=== PATIENT | male | born 1980 | race Asian ===

== ENCOUNTER 2016-06-14 12:00 | Outpatient (RCR) | payer OTHER ==
--- OUTSIDE RECORDS SUMMARY | 2016-06-12 16:46 | XMS REPORT | Continuity of Care Document ---
Author Author [facility] Organization [facility] Address Unknown Phone Unavailable Care Team Providers Care Base Wad Operator Adjuster Name Role Phone NO, LOCAL PHYSICIAN PCP Unavailable Insurance Providers Payer Name Policy Number Subscriber Name Relationship Student Resources [id number] Lay Thayer Y 16 Self / Same As Patient Advance Directives Directive Response Recorded Date/Time Advance Directives No 05/14/16 9:05am Organ Donor Yes 05/14/16 9:05am Resuscitation Status Full Code 05/14/16 9:05am Chief Complaint and Reason for Visit Chief Complaint Back Problems Reason for Visit [id number] Problems Active Problems Medical Problem Onset Date Status Hydronephrosis Unknown Acute Right distal ureteral calculus Unknown Acute Right sided abdominal pain Unknown Acute Ureteral stone Unknown Acute Medications Current Home Medications Medication Dose Units Route Directions Days/Qty Instructions Start Date Oxycodone Hcl/Acetaminophen 1 Each 1 Each Oral Every 4HRS as needed for Pain 05/13/16 Ciprofloxacin Hcl 500 Mg 500 Mg Oral Twice A Day 05/13/16 Ondansetron 4 Mg 4 Mg Sublingual Every 4HRS as needed for Nausea/Vomiting 05/13/16 Tamsulosin Hcl 0.4 Mg 0.4 Mg Oral Daily 05/14/16 Social History Social History Problem Response Recorded Date/Time Alcohol Use Denies Use 05/14/2016 9:05am Recreational Drug Use No 05/14/2016 9:05am Recent Foreign Travel No 05/14/2016 9:05am Recent Infectious Disease Exposure No 05/14/2016 9:05am Hospitalization with Isolation Denies 05/14/2016 9:05am Smoking Status Never a Smoker 05/14/2016 9:05am Recent Hopitalizations No 05/14/2016 9:05am Hospitalization with Isolation Denies 05/14/2016 9:05am Query Response Start Date Stop Date Smoking Status Never a Smoker Hospital Discharge Instructions No hospital discharge instructions. Plan of Care Discharge Date 05/14/16 10:19am Disposition 01 HOME, SELF-CARE Condition at Discharge Improved Instructions/Education Provided Nephrolithiasis (ED) How to Strain Your Urine (ED) Forms Provided School/Childcare Release Prescriptions See Medication Section Referrals NO,LOCAL PHYSICIAN - Primary Care Physician DANIEL PIRES MD - Additional Instructions/Education STRAIN ALL URINE--RETURN ANY STONES TO YOUR DR'S OFFICE FOLLOW UP WITH DR. PIRES SCHEDULED, OR SOONER IF WORSE CONTINUE YOUR MEDICATIONS PRESCRIBED All discharge instructions reviewed with patient and/or family. Voiced understanding. Functional Status No functional status results. Allergies, Adverse Reactions, Alerts No known allergies. Immunizations No immunization records. Vital Signs Acute Vital Signs Vital Response Date/Time Temperature (Fahrenheit) 98.4 degrees F (97.6 - 99.5) 05/14/2016 9:05am Temperature (Calculated Celsius) 36.38688 degrees C (36.4 - 37.5) 05/14/2016 9:05am Temperature Source Temporal 05/14/2016 9:05am Pulse Rate (adult) 70 bpm (60 - 90) 05/14/2016 9:05am Respiratory Rate 16 bpm (12 - 24) 05/14/2016 9:05am O2 Sat by Pulse Oximetry 99 % (88 - 100) 05/14/2016 9:05am Blood Pressure 130/82 mm Hg 05/14/2016 9:05am Blood Pressure Mean 98 mm Hg 05/14/2016 9:05am Pain Numeric Pain Scale 7 05/14/2016 9:40am Height (Feet) 5 feet 05/14/2016 9:05am Height (Inches) 8 inches 05/14/2016 9:05am Height (Calculated Centimeters) 172.612801 cm 05/14/2016 9:05am Weight (Pounds) 155 pounds 05/14/2016 9:05am Weight (Calculated Grams) 46017.704 gm 05/14/2016 9:05am Weight (Calculated Kilograms) 70.109763 kilograms 05/14/2016 9:05am Capillary Refill Capillary Refill Less Than 3 Seconds 05/14/2016 9:05am Height 5 ft 8 in Weight 155 lb Body Mass Index 23.6 kg/m^2 Results Laboratory Results Test Name Result Units Flags Reference Collection Date/Time Result Date/ Time Comments White Blood Count 11.1 10^3/uL H 4.3-11.0 05/13/2016 7:40am 05/13/2016 8: 10am Red Blood Count 5.11 10^6/uL 4.35-5.85 05/13/2016 7:40am 05/13/2016 8: 10am Hemoglobin 15.6 G/DL 13.3-17.7 05/13/2016 7:40am 05/13/2016 8:10am Hematocrit 46 % 40-54 05/13/2016 7:40am 05/13/2016 8:10am Mean Corpuscular Volume 89 FL 80-99 05/13/2016 7:40am 05/13/2016 8: 10am Mean Corpuscular Hemoglobin 31 PG 25-34 05/13/2016 7:40am 05/13/2016 8: 10am Mean Corpuscular Hemoglobin Concent 34 G/DL 32-36 05/13/2016 7:40am 01/2016 8:10am Red Cell Distribution Width 11.8 % 10.0-14.5 05/13/2016 7:40am 2015 8:10am Platelet Count 265 10^3/uL 130-400 05/13/2016 7:40am 05/13/2016 8:10am Mean Platelet Volume 11.1 FL H 7.4-10.4 05/13/2016 7:40am 05/13/2016 8: 10am Neutrophils (%) (Auto) 69 % 42-75 05/13/2016 7:40am 05/13/2016 8:10am Lymphocytes (%) (Auto) 23 % 12-44 05/13/2016 7:40am 05/13/2016 8:10am Monocytes (%) (Auto) 8 % 0-12 05/13/2016 7:40am 05/13/2016 8:10am Eosinophils (%) (Auto) 0 % 0-10 05/13/2016 7:40am 05/13/2016 8:10am Basophils (%) (Auto) 0 % 0-10 05/13/2016 7:40am 05/13/2016 8:10am Neutrophils # (Auto) 7.6 X 10^3 1.8-7.8 05/13/2016 7:40am 05/13/2016 8: 10am Lymphocytes # (Auto) 2.5 X 10^3 1.0-4.0 05/13/2016 7:40am 05/13/2016 8: 10am Monocytes # (Auto) 0.9 X 10^3 0.0-1.0 05/13/2016 7:40am 05/13/2016 8: 10am Eosinophils # (Auto) 0.0 10^3/uL 0.0-0.3 05/13/2016 7:40am 05/13/2016 8 :10am Basophils # (Auto) 0.0 10^3/uL 0.0-0.1 05/13/2016 7:40am 05/13/2016 8: 10am Urine Color CONOR * 05/13/2016 7:40am 05/13/2016 8:13am Urine Clarity VERY CLOUDY * 05/13/2016 7:40am 05/13/2016 8:13am Urine pH 6.5 5-9 05/13/2016 7:40am 05/13/2016 8:13am Urine Specific [place] 1.020 1.016-1.022 05/13/2016 7:40am 2015 8:13am Urine Protein 2+ * NEGATIVE 05/13/2016 7:40am 05/13/2016 8:13am Urine Glucose (UA) NEGATIVE NEGATIVE 05/13/2016 7:40am 05/13/2016 8: 13am Urine RBC (Auto) 5+ * NEGATIVE 05/13/2016 7:40am 05/13/2016 8:13am Urine Ketones NEGATIVE NEGATIVE 05/13/2016 7:40am 05/13/2016 8:13am Urine Nitrite NEGATIVE NEGATIVE 05/13/2016 7:40am 05/13/2016 8:13am Urine Bilirubin NEGATIVE NEGATIVE 05/13/2016 7:40am 05/13/2016 8: 13am Urine Urobilinogen NORMAL MG/DL NORMAL 05/13/2016 7:40am 05/13/2016 8: 13am Urine Leukocyte Esterase 2+ * NEGATIVE 05/13/2016 7:40am 05/13/2016 8: 13am Urine RBC TNTC /HPF * 05/13/2016 7:40am 05/13/2016 8:13am Urine WBC 5-10 /HPF * 05/13/2016 7:40am 05/13/2016 8:13am Urine Bacteria NEGATIVE /HPF 05/13/2016 7:40am 05/13/2016 8:13am Urine Squamous Epithelial Cells NONE /HPF 05/13/2016 7:40am 2015 8:13am Urine Crystals NONE /LPF 05/13/2016 7:40am 05/13/2016 8:13am Urine Casts NONE /LPF 05/13/2016 7:40am 05/13/2016 8:13am Urine Mucus MODERATE /LPF * 05/13/2016 7:40am 05/13/2016 8:13am Urine Culture Indicated YES 05/13/2016 7:40am 05/13/2016 8:13am Sodium Level 140 MMOL/L 135-145 05/13/2016 7:40am 05/13/2016 8:19am Potassium Level 3.8 MMOL/L 3.6-5.0 05/13/2016 7:40am 05/13/2016 8:19am Chloride Level 104 MMOL/L 98-107 05/13/2016 7:40am 05/13/2016 8:19am Carbon Dioxide Level 23 MMOL/L 21-32 05/13/2016 7:40am 05/13/2016 8: 19am Anion Gap 13 MMOL/L 5-14 05/13/2016 7:40am 05/13/2016 8:19am Blood Urea Nitrogen 13 MG/DL 7-18 05/13/2016 7:40am 05/13/2016 8:19am Creatinine 1.11 MG/DL 0.60-1.30 05/13/2016 7:40am 05/13/2016 8:19am BUN/Creatinine Ratio 12 05/13/2016 7:40am 05/13/2016 8:19am Estimat Glomerular Filtration Rate > 60 05/13/2016 7:40am 2015 8:19am GFR INTERPRETIVE DATA UNITS FOR ESTIMATED GFR (eGFR): mL/min/1.73 M2 REFERENCE RANGE FOR ESTIMATED GFR (eGFR) eGFR NORMAL eGFR >60 MODERATELY DECREASED eGFR 30-59 SEVERLY DECREASED eGFR 15-29 KIDNEY FAILURE <15 (OR DIALYSIS) Glucose Level 116 MG/DL H 70-105 05/13/2016 7:40am 05/13/2016 8:19am Calcium Level 9.6 MG/DL 8.5-10.1 05/13/2016 7:40am 05/13/2016 8:19am Total Bilirubin 0.8 MG/DL 0.1-1.0 05/13/2016 7:40am 05/13/2016 8:19am Alkaline Phosphatase 83 U/L 40-136 05/13/2016 7:40am 05/13/2016 8:19am Aspartate Amino Transf (AST/SGOT) 20 U/L 5-34 05/13/2016 7:40am 2015 8:19am Alanine Aminotransferase (ALT/SGPT) 22 U/L 0-55 05/13/2016 7:40am 05/13 8:19am Total Protein 7.7 G/DL 6.4-8.2 05/13/2016 7:40am 05/13/2016 8:19am Albumin 4.2 G/DL 3.2-4.5 05/13/2016 7:40am 05/13/2016 8:19am Procedures No known history of procedures. Encounters Encounter Location Arrival/Admit Date Discharge/Depart Date Attending Provider Registered Emergency Room [facility] 05/14/16 9:01am JAIR RUIZ DO Departed Emergency Room [facility] 05/13/16 7:26am 05/13 11:38am ANDREW GENAO MD Recent Diagnosis
[2016-06-12 17:14] LABS: ANION GAP 10 MMOL/L (5-14); BLOOD UREA NITROGEN 11 MG/DL (7-18); BUN/CREATININE RATIO 13; CALCIUM 9.1 MG/DL (8.5-10.1); CARBON DIOXIDE 24 MMOL/L (21-32); CHLORIDE 105 MMOL/L (98-107); CREATININE SERUM 0.84 MG/DL (0.60-1.30); GFR ESTIMATED > 60; GLUCOSE 95 MG/DL (70-105); POTASSIUM 3.7 MMOL/L (3.6-5.0); SODIUM 139 MMOL/L (135-145)
[~2016-06-14 12:00] MED LIST: CIPR-225 PO; HYDR-3876 PO; LEVO250T11 PO; ONDA4TAB8 SL; OXYC-197 PO; PHEN-640 PO; TAMS0.4C98 PO
--- OUTSIDE RECORDS SUMMARY | 2016-06-18 08:14 | XMS REPORT | Continuity of Care Document ---
Author Author [facility] Organization [facility] Address Unknown Phone Unavailable Care Team Providers Care Cost Control Analyst Name Role Phone NO, LOCAL PHYSICIAN PCP Unavailable Insurance Providers Payer Name Policy Number Subscriber Name Relationship Student Resources [id number] Lay Thayer Y 16 Self / Same As Patient Advance Directives Directive Response Recorded Date/Time Advance Directives No 05/14/16 9:05am Organ Donor Yes 05/14/16 9:05am Resuscitation Status Full Code 05/14/16 9:05am Chief Complaint and Reason for Visit Chief Complaint Back Problems Reason for Visit [id number] Problems Active Problems Medical Problem Onset Date [...] - 99.5) 05/14/2016 9:05am Temperature (Calculated Celsius) 36.23919 degrees C (36.4 - 37.5) 05/14/2016 9:05am [...] 8 inches 05/14/2016 9:05am Height (Calculated Centimeters) 172.459758 cm 05/14/2016 9:05am Weight (Pounds) 155 pounds 05/14/2016 9:05am Weight (Calculated Grams) 53924.704 gm 05/14/2016 9:05am Weight (Calculated Kilograms) 70.437312 kilograms 05/14/2016 9:05am Capillary Refill Capillary Refill [...] 5-9 05/13/2016 7:40am 05/13/2016 8:13am Urine Specific [place] 1.020 1.016-1.022 05/13/2016 7:40am 2015 8:13am Urine [...] Date Attending Provider Registered Emergency Room [facility] 05/14/16 9:01am JAIR RUIZ DO Departed Emergency Room [facility] 05/13/16 7:26am 05/13 11:38am ANDREW GENAO MD Recent Diagnosis
[2016-06-21 14:40] LABS: STONE RISK AMMONIUM 33 mEq/24hr (14-62); STONE RISK BRUSHITE 0.98 (< 2.00); STONE RISK CALCIUM 106 mg/day (< 250); STONE RISK CITRATE 386 mg/day (> 320); STONE RISK CREATININE 1717 mg/day (800-2000); STONE RISK MAGNESIUM 91 mg/day (> 60); STONE RISK OXALATE 25 mg/day (< 45); STONE RISK PH 6.5 (5.5-7.0); STONE RISK PHOSPHOROUS 849 mg/day (< 1100); STONE RISK POTASSIUM 56 mEq/24hr (19-135); STONE RISK SODIUM 117 mEq/24hr (< 200); STONE RISK SODIUM URATES 1.17 (< 2.00); STONE RISK STRUVITE 1.43 (< 75.00); STONE RISK SULFITE 17 mmol/day (< 30); STONE RISK TOTAL VOLUME 2.32 L/day (> 2.00); STONE RISK URIC ACID 631 mg/day (< 700); STONE RISK URIC ACID SAT 0.42 (< 2.00)
== END 2016-09-10 | disposition home or self-care (01) ==
LOC: LAB 12:00 → EDSTATUS 06-18 08:10
PROVIDERS: ATTEND Urology
DX: N20.9 Urinary calculus, unspecified (principal)
CPT/HCPCS: 36415; 80048; 82140; 82340; 82507; 82570; 83735; 83945; 83986; 84105; 84133; 84300; 84392; 84560